=== PATIENT | female | born 1955 | race Caucasian/White ===

== ENCOUNTER 2017-10-19 12:30 | Emergency (ER) | payer MEDICARE, MEDICAID ==
[~2017-10-19] VITALS: Ht 165.1 cm; Wt 105.0 kg
[~2017-10-19 12:30] MED LIST: ALBU18HF2 INH; ASPI81TA52 PO; DOCU-28 PO; LISI-604 PO; LORA10TA7 PO; METH5TAB4 PO; NITR0.4T51 SL; OXYC30TA85 PO; PRED50TA PO; [UNRECOGNIZED DRUG - CODE] PO
[2017-10-19 13:24] LABS: BASOPHILS % (AUTO) 0.4 % (0-1); EOSINOPHILS # (AUTO) 0.1 X10'3 (0-0.9); EOSINOPHILS % (AUTO) 1.9 % (0-6); HEMATOCRIT 40.5 % (35.0-45.0); HEMOGLOBIN 13.9 g/dl (12.0-16.0); LYMPHOCYTES # (AUTO) 2.2 X10'3 (1.1-4.8); MEAN CORPUSCULAR HEMOGLOBIN 30.3 PG (27.0-31.0); MEAN CORPUSCULAR HGB CONC 34.3 % (33.0-36.5); MEAN CORPUSCULAR VOLUME 88.4 FL (78-98); MEAN PLATELET VOLUME 8.7 FL (7.4-10.4); MONOCYTES # (AUTO) 0.4 X10'3 (0-0.9); MONOCYTES % (AUTO) 4.8 % (2-12); NEUTROPHILS % (AUTO) 64.9 % (42-75); PLATELET COUNT 207 X10'3 (140-440); RED BLOOD COUNT 4.58 X10'6 (4.20-5.60); RED CELL DISTRIBUTION WIDTH 14.1 % (11.5-14.5); WHITE BLOOD COUNT 7.8 X10'3 (4.5-11.0)
[2017-10-19 13:38] LABS: ALANINE AMINOTRANSFERASE 25 U/L (12-78); ALBUMIN 3.9 G/DL (3.4-5.0); ALKALINE PHOSPHATASE 93 IU/L (46-116); AMYLASE 35 U/L (25-115); ANION GAP 9 (8-16); ASPARTATE AMINO TRANSFERASE 10 U/L (10-37); BILIRUBIN,TOTAL 0.2 MG/DL (0.1-1.0); BLOOD UREA NITROGEN 11 MG/DL (7-18); BUN/CREATININE RATIO 11.3 (6.6-38.0); CALCIUM 9.4 MG/DL (8.5-10.1); CHLORIDE 103 MMOL/L (99-107); CREATININE 0.97 MG/DL (0.40-0.90); GLUCOSE 93 MG/DL (70-104); LIPASE 92 U/L (73-393); POTASSIUM 3.9 MMOL/L (3.5-5.1); SODIUM 140 MMOL/L (135-145); TOTAL CARBON DIOXIDE 28.2 MMOL/L (24-32); TOTAL PROTEIN 7.7 G/DL (6.4-8.2); eGFR 58 ML/MIN
[2017-10-19 13:54] LABS: CLARITY,URINE CLEAR (Clear); COLOR,URINE YELLOW (Yellow); GLUCOSE, URINE NEGATIVE (Neg); KETONES,URINE NEGATIVE (Neg); LEUKOCYTE ESTERASE ,URINE NEGATIVE (Neg); NITRITES, URINE NEGATIVE (Neg); OCCULT BLOOD,URINE NEGATIVE (Neg); PROTEIN,URINE NEGATIVE (Neg); UROBILINOGEN,URINE 0.2 E.U/dL (0.2-1.0)
[2017-10-19 14:05] LABS: UA COLLECTION TYPE CLN CATCH MIDSTREAM
[2017-10-19 15:30] VITALS: BP 138/74
[2017-10-19] MEDS ORDERED: ketorolac tromethamine 15mg/ml inj. IM STA (15:30)
[2017-10-19] MEDS ORDERED: IBUP-1985 PO (15:31)
[2017-10-19] MEDS ORDERED: LIDO700A47 TOP (16:53)
== END 2017-10-19 17:01 | disposition home or self-care (01) ==
LOC: ER 12:30
DX: M94.0 Chondrocostal junction syndrome [Tietze] (principal); I48.91 Unspecified atrial fibrillation; I10 Essential (primary) hypertension; J45.909 Unspecified asthma, uncomplicated; F17.200 Nicotine dependence, unspecified, uncomplicated; Z90.710 Acquired absence of both cervix and uterus; Z98.51 Tubal ligation status; Z98.890 Other specified postprocedural states; Z56.0 Unemployment, unspecified; Z88.1 Allergy status to other antibiotic agents; Z88.8 Allergy status to other drugs, medicaments and biological substances; Z79.82 Long term (current) use of aspirin; Z79.899 Other long term (current) drug therapy
CPT/HCPCS: 36415; 80053; 81003; 82150; 83690; 85025; 85610; 96372; 99284; J1885

== ENCOUNTER 2018-03-20 13:05 | Emergency (ER) | payer MEDICARE, MEDICAID ==
[~2018-03-20] VITALS: Ht 165.1 cm; Wt 104.5 kg
[~2018-03-20 13:05] MED LIST changes: +IBUP-1985 PO; +LIDO700A47 TOP
[2018-03-20 13:37] LABS: BASOPHILS % (AUTO) 0.3 % (0-1); EOSINOPHILS # (AUTO) 0.2 X10'3 (0-0.9); EOSINOPHILS % (AUTO) 2.7 % (0-6); HEMATOCRIT 37.6 % (35.0-45.0); HEMOGLOBIN 12.6 g/dl (12.0-16.0); LYMPHOCYTES # (AUTO) 2.2 X10'3 (1.1-4.8); LYMPHOCYTES % (AUTO) 34.3 % (21-51); MEAN CORPUSCULAR HEMOGLOBIN 29.4 PG (27.0-31.0); MEAN CORPUSCULAR HGB CONC 33.7 % (33.0-36.5); MEAN CORPUSCULAR VOLUME 87.4 FL (78-98); MEAN PLATELET VOLUME 8.1 FL (7.4-10.4); MONOCYTES # (AUTO) 0.3 X10'3 (0-0.9); MONOCYTES % (AUTO) 4.4 % (2-12); NEUTROPHILS # (AUTO) 3.8 X10'3 (1.8-7.7); NEUTROPHILS % (AUTO) 58.3 % (42-75); PLATELET COUNT 198 X10'3 (140-440); RED CELL DISTRIBUTION WIDTH 13.6 % (11.5-14.5); WHITE BLOOD COUNT 6.4 X10'3 (4.5-11.0)
[2018-03-20 13:50] LABS: PARTIAL THROMBOPLASTIN TIME 28 SECONDS (22-32); PROTHROMBIN TIME 10.2 SECONDS (9.0-12.0)
[2018-03-20 13:57] LABS: ALANINE AMINOTRANSFERASE 34 U/L (12-78); ALBUMIN 3.5 G/DL (3.4-5.0); ALBUMIN/GLOBULIN RATIO 1.1 (1.1-1.5); ALKALINE PHOSPHATASE 80 IU/L (46-116); ANION GAP 7 (8-16); ASPARTATE AMINO TRANSFERASE 16 U/L (10-37); BILIRUBIN,TOTAL 0.3 MG/DL (0.1-1.0); BLOOD UREA NITROGEN 12 MG/DL (7-18); CALCIUM 8.6 MG/DL (8.5-10.1); CHLORIDE 102 MMOL/L (99-107); GLUCOSE 113 MG/DL (70-104); POTASSIUM 3.8 MMOL/L (3.5-5.1); SODIUM 137 MMOL/L (135-145); TOTAL CARBON DIOXIDE 28.3 MMOL/L (24-32); TOTAL PROTEIN 6.8 G/DL (6.4-8.2); eGFR 56 ML/MIN
[2018-03-20 14:17] LABS: D-DIMER 0.34 MG/L FEU (0-0.50)
[2018-03-20 14:44] VITALS: BP 114/60
== END 2018-03-20 14:45 | disposition home or self-care (01) ==
LOC: ER 13:06
DX: R07.89 Other chest pain (principal); R61 Generalized hyperhidrosis; I48.91 Unspecified atrial fibrillation; I10 Essential (primary) hypertension; J45.909 Unspecified asthma, uncomplicated; Z90.710 Acquired absence of both cervix and uterus; Z98.51 Tubal ligation status; Z56.0 Unemployment, unspecified; Z96.22 Myringotomy tube(s) status; Z98.890 Other specified postprocedural states; Z79.899 Other long term (current) drug therapy; Z79.82 Long term (current) use of aspirin; Z88.1 Allergy status to other antibiotic agents; Z88.8 Allergy status to other drugs, medicaments and biological substances
CPT/HCPCS: 36415; 71045; 80053; 84484; 85025; 85379; 85610; 85730; 93005; 99285

== ENCOUNTER 2018-08-14 08:39 | Emergency (ER) | payer MEDICARE, MEDICAID ==
[~2018-08-14] VITALS: Ht 165.1 cm; Wt 106.8 kg
[2018-08-14 08:42] VITALS: BP 166/72
[2018-08-14] MEDS ORDERED: PENI250T2 PO (08:45)
== END 2018-08-14 08:59 | disposition home or self-care (01) ==
LOC: ER 08:40
DX: K91.89 Other postprocedural complications and disorders of digestive system (principal); K08.89 Other specified disorders of teeth and supporting structures; I48.91 Unspecified atrial fibrillation; I10 Essential (primary) hypertension; G89.29 Other chronic pain; Z88.1 Allergy status to other antibiotic agents; Z88.8 Allergy status to other drugs, medicaments and biological substances; Z79.82 Long term (current) use of aspirin; Z79.899 Other long term (current) drug therapy; Z90.710 Acquired absence of both cervix and uterus; Z98.51 Tubal ligation status; Z56.0 Unemployment, unspecified; Z96.22 Myringotomy tube(s) status
CPT/HCPCS: 99283

== ENCOUNTER 2018-09-08 13:13 | Emergency (ER) | payer MEDICARE, MEDICAID ==
[~2018-09-08] VITALS: Ht 165.1 cm; Wt 109.1 kg
[2018-09-08 13:57] LABS: BASOPHILS # (AUTO) 0.1 X10'3 (0-0.2); BASOPHILS % (AUTO) 0.6 % (0-1); EOSINOPHILS # (AUTO) 0.3 X10'3 (0-0.9); EOSINOPHILS % (AUTO) 3.5 % (0-6); HEMATOCRIT 42.5 % (35.0-45.0); HEMOGLOBIN 14.1 g/dl (12.0-16.0); LYMPHOCYTES # (AUTO) 2.3 X10'3 (1.1-4.8); LYMPHOCYTES % (AUTO) 29.3 % (21-51); MEAN CORPUSCULAR HEMOGLOBIN 29.3 PG (27.0-31.0); MEAN CORPUSCULAR HGB CONC 33.3 g/dL (33.0-36.5); MEAN CORPUSCULAR VOLUME 88.1 FL (78-98); MEAN PLATELET VOLUME 8.5 FL (7.4-10.4); MONOCYTES # (AUTO) 0.4 X10'3 (0-0.9); MONOCYTES % (AUTO) 4.9 % (2-12); NEUTROPHILS # (AUTO) 4.9 X10'3 (1.8-7.7); NEUTROPHILS % (AUTO) 61.7 % (42-75); PLATELET COUNT 232 X10'3 (140-440); RED BLOOD COUNT 4.82 X10'6 (4.20-5.60); WHITE BLOOD COUNT 7.9 X10'3 (4.5-11.0)
[2018-09-08 14:21] LABS: PARTIAL THROMBOPLASTIN TIME 32 SECONDS (22-32); PROTHROMBIN TIME 9.9 SECONDS (9.0-12.0)
[2018-09-08 14:30] LABS: ALANINE AMINOTRANSFERASE 38 U/L (12-78); ALBUMIN 3.7 G/DL (3.4-5.0); ALKALINE PHOSPHATASE 110 IU/L (46-116); ANION GAP 9 (8-16); ASPARTATE AMINO TRANSFERASE 13 U/L (10-37); BILIRUBIN,TOTAL 0.4 MG/DL (0.1-1.0); BLOOD UREA NITROGEN 13 MG/DL (7-18); BUN/CREATININE RATIO 12.3 (6.6-38.0); CALCIUM 9.1 MG/DL (8.5-10.1); CHLORIDE 103 MMOL/L (99-107); CREATININE 1.06 MG/DL (0.40-0.90); GLUCOSE 118 MG/DL (70-104); POTASSIUM 4.2 MMOL/L (3.5-5.1); SODIUM 142 MMOL/L (135-145); TOTAL CARBON DIOXIDE 29.9 MMOL/L (24-32); TOTAL PROTEIN 7.5 G/DL (6.4-8.2); eGFR 53 ML/MIN
[2018-09-08 17:24] VITALS: BP 119/80
== END 2018-09-08 17:26 | disposition home or self-care (01) ==
LOC: ER 13:14
DX: R07.89 Other chest pain (principal); R11.0 Nausea; R06.02 Shortness of breath; I48.91 Unspecified atrial fibrillation; I10 Essential (primary) hypertension; J45.909 Unspecified asthma, uncomplicated; G89.29 Other chronic pain; Z98.51 Tubal ligation status; Z90.710 Acquired absence of both cervix and uterus; Z98.890 Other specified postprocedural states; Z88.8 Allergy status to other drugs, medicaments and biological substances; Z79.82 Long term (current) use of aspirin; Z79.899 Other long term (current) drug therapy
CPT/HCPCS: 36415; 71045; 80053; 84484; 85025; 85379; 85610; 85730; 93005; 99284

== ENCOUNTER 2018-12-07 11:02 | Emergency (ER) | payer MEDICARE, MEDICAID ==
[~2018-12-07] VITALS: Ht 165.1 cm; Wt 106.8 kg
[2018-12-07 12:12] LABS: BASOPHILS % (AUTO) 0.5 % (0-1); EOSINOPHILS # (AUTO) 0.2 X10'3 (0-0.9); EOSINOPHILS % (AUTO) 2.9 % (0-6); HEMATOCRIT 42.8 % (35.0-45.0); HEMOGLOBIN 14.2 g/dl (12.0-16.0); LYMPHOCYTES # (AUTO) 2.5 X10'3 (1.1-4.8); LYMPHOCYTES % (AUTO) 37.8 % (21-51); MEAN CORPUSCULAR HEMOGLOBIN 28.9 PG (27.0-31.0); MEAN CORPUSCULAR HGB CONC 33.1 g/dL (33.0-36.5); MEAN CORPUSCULAR VOLUME 87.3 FL (78-98); MEAN PLATELET VOLUME 9.2 FL (7.4-10.4); MONOCYTES # (AUTO) 0.4 X10'3 (0-0.9); MONOCYTES % (AUTO) 5.5 % (2-12); NEUTROPHILS # (AUTO) 3.5 X10'3 (1.8-7.7); NEUTROPHILS % (AUTO) 53.3 % (42-75); PLATELET COUNT 176 X10'3 (140-440); RED CELL DISTRIBUTION WIDTH 14.3 % (11.5-14.5); WHITE BLOOD COUNT 6.6 X10'3 (4.5-11.0)
[2018-12-07 12:26] LABS: ALANINE AMINOTRANSFERASE 30 U/L (12-78); ALBUMIN 3.5 G/DL (3.4-5.0); ALBUMIN/GLOBULIN RATIO 1.1 (1.1-1.5); ALKALINE PHOSPHATASE 91 IU/L (46-116); ANION GAP 9 (8-16); ASPARTATE AMINO TRANSFERASE 15 U/L (10-37); BILIRUBIN,TOTAL 0.5 MG/DL (0.1-1.0); BLOOD UREA NITROGEN 15 MG/DL (7-18); CALCIUM 9.4 MG/DL (8.5-10.1); CHLORIDE 104 MMOL/L (99-107); CREATININE 0.79 MG/DL (0.40-0.90); GLUCOSE 92 MG/DL (70-104); POTASSIUM 3.9 MMOL/L (3.5-5.1); SODIUM 138 MMOL/L (135-145); TOTAL CARBON DIOXIDE 25.5 MMOL/L (24-32); TOTAL PROTEIN 6.8 G/DL (6.4-8.2); eGFR 74 ML/MIN
[2018-12-07 12:32] LABS: PARTIAL THROMBOPLASTIN TIME 32 SECONDS (22-32)
[2018-12-07 15:46] VITALS: BP 136/85
== END 2018-12-07 16:10 | disposition home or self-care (01) ==
LOC: ER 11:02
DX: R07.89 Other chest pain (principal); R73.03 Prediabetes; I48.91 Unspecified atrial fibrillation; I10 Essential (primary) hypertension; J45.909 Unspecified asthma, uncomplicated; G89.29 Other chronic pain; Z90.710 Acquired absence of both cervix and uterus; Z86.73 Personal history of transient ischemic attack (TIA), and cerebral infarction without residual deficits; Z98.51 Tubal ligation status; Z98.890 Other specified postprocedural states; Z56.0 Unemployment, unspecified; Z88.1 Allergy status to other antibiotic agents; Z88.8 Allergy status to other drugs, medicaments and biological substances; Z79.82 Long term (current) use of aspirin; Z79.899 Other long term (current) drug therapy
CPT/HCPCS: 36415; 71045; 80053; 84484; 85025; 85610; 85730; 93005; 99284

== ENCOUNTER 2019-08-14 12:16 | Emergency (ER) | payer MEDICARE, MEDICAID ==
[~2019-08-14] VITALS: Ht 165.1 cm; Wt 104.5 kg
[2019-08-14 12:52] LABS: BASOPHILS % (AUTO) 0.4 % (0-1); EOSINOPHILS # (AUTO) 0.3 X10'3 (0-0.9); EOSINOPHILS % (AUTO) 3.2 % (0-6); HEMATOCRIT 39.5 % (35.0-45.0); HEMOGLOBIN 13.3 g/dl (12.0-16.0); LYMPHOCYTES # (AUTO) 2.2 X10'3 (1.1-4.8); LYMPHOCYTES % (AUTO) 28.2 % (21-51); MEAN CORPUSCULAR HGB CONC 33.7 g/dL (33.0-36.5); MEAN CORPUSCULAR VOLUME 88.9 FL (78-98); MEAN PLATELET VOLUME 8.7 FL (7.4-10.4); MONOCYTES # (AUTO) 0.4 X10'3 (0-0.9); MONOCYTES % (AUTO) 4.6 % (2-12); NEUTROPHILS % (AUTO) 63.6 % (42-75); PLATELET COUNT 210 X10'3 (140-440); RED BLOOD COUNT 4.44 X10'6 (4.20-5.60); RED CELL DISTRIBUTION WIDTH 14.3 % (11.5-14.5); WHITE BLOOD COUNT 7.9 X10'3 (4.5-11.0)
[2019-08-14 13:09] LABS: ALANINE AMINOTRANSFERASE 28 U/L (12-78); ALBUMIN 3.5 G/DL (3.4-5.0); ALBUMIN/GLOBULIN RATIO 1.1 (1.1-1.5); ALKALINE PHOSPHATASE 106 IU/L (46-116); ANION GAP 7 (8-16); ASPARTATE AMINO TRANSFERASE 11 U/L (10-37); BILIRUBIN,TOTAL 0.2 MG/DL (0.1-1.0); BLOOD UREA NITROGEN 17 MG/DL (7-18); BUN/CREATININE RATIO 17.5 (6.6-38.0); CALCIUM 8.6 MG/DL (8.5-10.1); CHLORIDE 106 MMOL/L (99-107); CREATININE 0.97 MG/DL (0.40-0.90); GLUCOSE 149 MG/DL (70-104); POTASSIUM 4.3 MMOL/L (3.5-5.1); SODIUM 141 MMOL/L (135-145); TOTAL CARBON DIOXIDE 27.8 MMOL/L (24-32); TOTAL PROTEIN 6.7 G/DL (6.4-8.2); eGFR 58 ML/MIN
[2019-08-14 16:39] LABS: D-DIMER 0.32 MG/L FEU (0-0.50)
[2019-08-14 17:23] VITALS: BP 149/86
== END 2019-08-14 17:24 | disposition home or self-care (01) ==
LOC: ER 12:17
DX: R07.89 Other chest pain (principal); F17.210 Nicotine dependence, cigarettes, uncomplicated; I48.91 Unspecified atrial fibrillation; I10 Essential (primary) hypertension; J45.909 Unspecified asthma, uncomplicated; G89.29 Other chronic pain; Z71.6 Tobacco abuse counseling; Z90.710 Acquired absence of both cervix and uterus; Z98.51 Tubal ligation status; Z98.890 Other specified postprocedural states; Z86.73 Personal history of transient ischemic attack (TIA), and cerebral infarction without residual deficits; Z56.0 Unemployment, unspecified; Z88.1 Allergy status to other antibiotic agents; Z88.8 Allergy status to other drugs, medicaments and biological substances; Z79.899 Other long term (current) drug therapy
CPT/HCPCS: 36415; 71045; 80053; 84484; 85025; 85379; 93005; 99284; 99406

== ENCOUNTER 2019-12-31 09:50 | Emergency (ER) | payer MEDICARE, MEDICAID ==
[~2019-12-31] VITALS: Ht 165.1 cm; Wt 111.0 kg
[2019-12-31 11:12] VITALS: BP 143/92
== END 2019-12-31 11:13 | disposition home or self-care (01) ==
LOC: ER 09:51
DX: S00.83XA Contusion of other part of head, initial encounter (principal); I48.91 Unspecified atrial fibrillation; I10 Essential (primary) hypertension; J45.909 Unspecified asthma, uncomplicated; G89.29 Other chronic pain; Z90.710 Acquired absence of both cervix and uterus; Z86.73 Personal history of transient ischemic attack (TIA), and cerebral infarction without residual deficits; Z56.0 Unemployment, unspecified; Z88.8 Allergy status to other drugs, medicaments and biological substances; Z79.82 Long term (current) use of aspirin; Z79.899 Other long term (current) drug therapy; W19.XXXA Unspecified fall, initial encounter; Y93.89 Activity, other specified; Y92.89 Other specified places as the place of occurrence of the external cause; Y99.8 Other external cause status
CPT/HCPCS: 70450; 70486; 70488; 99285

== ENCOUNTER 2021-06-02 11:49 | Emergency (ER) | payer MEDICARE, MEDICAID ==
[~2021-06-02] VITALS: Ht 170.2 cm; Wt 95.0 kg
[~2021-06-02 11:49] MED LIST changes: -LISI-604 PO; +LISI5TAB22 PO
[2021-06-02 11:58] VITALS: BP 167/84
[2021-06-02 12:59] LABS: BASOPHILS % (AUTO) 0.6 % (0-1); EOSINOPHILS % (AUTO) 0.3 % (0-6); HEMATOCRIT 38.3 % (35.0-45.0); HEMOGLOBIN 12.8 g/dl (12.0-16.0); LYMPHOCYTES # (AUTO) 1.7 X10'3 (1.1-4.8); LYMPHOCYTES % (AUTO) 24.3 % (21-51); MEAN CORPUSCULAR HGB CONC 33.4 g/dL (33.0-36.5); MEAN CORPUSCULAR VOLUME 89.8 FL (78-98); MEAN PLATELET VOLUME 8.6 FL (7.4-10.4); MONOCYTES # (AUTO) 0.4 X10'3 (0-0.9); MONOCYTES % (AUTO) 4.9 % (2-12); NEUTROPHILS % (AUTO) 69.9 % (42-75); PLATELET COUNT 209 X10'3 (140-440); RED BLOOD COUNT 4.27 X10'6 (4.20-5.60); RED CELL DISTRIBUTION WIDTH 13.4 % (11.5-14.5); WHITE BLOOD COUNT 7.2 X10'3 (4.5-11.0)
[2021-06-02 13:11] LABS: ALANINE AMINOTRANSFERASE 24 U/L (12-78); ALBUMIN 3.9 G/DL (3.4-5.0); ALBUMIN/GLOBULIN RATIO 1.1 (1.1-1.5); ALKALINE PHOSPHATASE 72 IU/L (46-116); ANION GAP 10 (8-16); ASPARTATE AMINO TRANSFERASE 14 U/L (10-37); BILIRUBIN,TOTAL 0.6 MG/DL (0.1-1.0); BLOOD UREA NITROGEN 9 MG/DL (7-18); BUN/CREATININE RATIO 12.2 (6.6-38.0); CALCIUM 9.2 MG/DL (8.5-10.1); CHLORIDE 104 MMOL/L (99-107); CREATININE 0.74 MG/DL (0.40-0.90); GLUCOSE 110 MG/DL (70-104); POTASSIUM 3.5 MMOL/L (3.5-5.1); SODIUM 140 MMOL/L (135-145); TOTAL CARBON DIOXIDE 26.5 MMOL/L (24-32); TOTAL PROTEIN 7.4 G/DL (6.4-8.2); eGFR 79 ML/MIN
== END 2021-06-02 14:43 | disposition home or self-care (01) ==
LOC: ER 11:49
DX: T63.011A Toxic effect of rattlesnake venom, accidental (unintentional), initial encounter (principal); R06.02 Shortness of breath; R07.89 Other chest pain; I48.91 Unspecified atrial fibrillation; I10 Essential (primary) hypertension; J45.909 Unspecified asthma, uncomplicated; G89.29 Other chronic pain; Z86.73 Personal history of transient ischemic attack (TIA), and cerebral infarction without residual deficits; Z90.710 Acquired absence of both cervix and uterus; Z98.51 Tubal ligation status; Z98.890 Other specified postprocedural states; Z56.0 Unemployment, unspecified; Z88.1 Allergy status to other antibiotic agents; Z88.8 Allergy status to other drugs, medicaments and biological substances; Z79.82 Long term (current) use of aspirin; Z79.899 Other long term (current) drug therapy; Y92.89 Other specified places as the place of occurrence of the external cause
CPT/HCPCS: 36415; 80053; 85025; 85610; 99283

== ENCOUNTER 2022-05-19 08:27 | Emergency (ER) | payer MEDICARE, MEDICAID ==
[~2022-05-19] VITALS: Ht 165.1 cm; Wt 96.8 kg
[2022-05-19 08:32] VITALS: BP 153/84
[2022-05-19] MEDS ORDERED: penicillin V potassium 500mg tablet PO ONE ×2 (08:50→09:00)
[2022-05-19] MEDS ORDERED: LIDOcaine Viscous 15ml cup MM PRN (08:50)
[2022-05-19] MEDS ORDERED: PENI250T2 PO (09:22)
== END 2022-05-19 09:41 | disposition home or self-care (01) ==
LOC: ER 08:28
DX: K08.89 Other specified disorders of teeth and supporting structures (principal); R50.9 Fever, unspecified; Z86.73 Personal history of transient ischemic attack (TIA), and cerebral infarction without residual deficits; I48.91 Unspecified atrial fibrillation; I10 Essential (primary) hypertension; J45.909 Unspecified asthma, uncomplicated; Z90.710 Acquired absence of both cervix and uterus; Z98.51 Tubal ligation status; Z98.890 Other specified postprocedural states; Z56.0 Unemployment, unspecified; Z88.1 Allergy status to other antibiotic agents; Z88.8 Allergy status to other drugs, medicaments and biological substances
CPT/HCPCS: 99283